=== PATIENT | male | born 1960 | race African-American/Black ===

== ENCOUNTER 2020-09-26 17:39 | Inpatient (IN) | payer MEDICAID, OTHER ==
[~2020-09-26] VITALS: Ht 172.7 cm; Wt 68.9 kg
[2020-09-26] MEDS ORDERED: SODIUM CHLORIDE 0.9% 1,000 ML IV ONE (18:15)
[2020-09-26 18:21] LABS: BASOPHILS % 1.5 % (0.0-2.0); EOSINOPHILS % 1.7 % (0.0-5.0); HEMATOCRIT. 38.1 % (42.0-52.0); LYMPHOCYTES % 25.8 % (20.0-50.0); MEAN CORPUSCULAR HEMOGLOBIN 25.5 pg (28.0-32.0); MEAN CORPUSCULAR VOLUME 75.1 fL (80.0-94.0); MEAN PLATELET VOLUME 7.6 fl (7.4-10.4); MONOCYTES % 7.5 % (2.0-8.0); NEUTROPHILS % 63.5 % (40.0-76.0); PLATELET 325 x1000/uL (130-400); RED BLOOD CELL COUNT 5.08 mill/uL (4.7-6.1); RED CELL DISTRIBUTION WIDTH 14.6 % (11.6-14.6)
[2020-09-26 18:24] LABS: CHLORIDE 108 mEq/L (98-107)
[2020-09-26 18:27] LABS: PROTHROMBIN TIME 10.9 sec (9.6-11.0)
[2020-09-26 18:29] LABS: ETHANOL BLOOD < 10 mg/dL
[2020-09-26 18:55] LABS: CLARITY URINE CLEAR (CLEAR); COLOR URINE YELLOW (YELLOW); KETONES URINE NEGATIVE (NEGATIVE); LEUKOCYTE ESTERASE URINE NEGATIVE (NEGATIVE); NITRITE URINE NEGATIVE (NEGATIVE); OCCULT BLOOD URINE 1+ (NEGATIVE); PROTEIN URINE 2+ (NEGATIVE); SPECIFIC GRAVITY URINE 1.015 (1.005-1.030); UROBILINOGEN URINE 0.2 E.U./dL (0.2-1.0)
[2020-09-26 19:07] LABS: *BARBITURATES SCREEN URINE NEGATIVE (NEGATIVE); *BENZODIAZEPINES SCREEN URINE NEGATIVE (NEGATIVE); *COCAINE SCREEN URINE NEGATIVE (NEGATIVE); METHADONE URINE SCREEN NEGATIVE (NEGATIVE); OPIATES URINE SCREEN NEGATIVE (NEGATIVE)
[2020-09-26 19:09] LABS: *AMPHETAMINES SCREEN URINE NEGATIVE (NEGATIVE); CANNABINOID URINE SCREEN PRESUMTIVE POSITIVE (NEGATIVE); PHENCYCLIDINE URINE SCREEN NEGATIVE (NEGATIVE)
[2020-09-26] MEDS ORDERED: LEVETIRACETAM 500MG PREMIX 100 ML IV ONE (21:00)
[2020-09-26] MEDS ORDERED: DEXAMETHASONE 10 MG/ML VIAL IV ONE (21:00)
[2020-09-26 21:37] LABS: PROTHROMBIN TIME 10.8 sec (9.6-11.0)
[2020-09-26] MEDS ORDERED: MORPHINE SULFATE 4 MG/ML CPJ (NOT FOR IM USE) IV PRN (22:45)
[2020-09-26] MEDS ORDERED: NICARDIPINE 100 MG in SODIUM CHLORIDE 0.9% 60 ML IV PRN (22:45)
[2020-09-26] MEDS: DEXT 5%/LACTATED RINGERS 1,000 ML IV SCH (23:20)
[2020-09-26 23:30] VITALS: BP 132/78
[2020-09-26 23:42] VITALS: BP 132/78
[2020-09-26 23:45] VITALS: BP 131/93
[2020-09-27] VITALS (80 sets, daily range): BP systolic 70–188; BP diastolic 27–147
[2020-09-27] MEDS ORDERED: LEVETIRACETAM 500MG PREMIX 100 ML IV SCH
[2020-09-27] MEDS ORDERED: ASPI-964 PO (00:11)
[2020-09-27] MEDS ORDERED: ONDANSETRON HCL 4MG/2ML INJ IV PRN (00:15)
[2020-09-27] MEDS: DEXAMETHASONE 4MG/ML 1ML VIAL IV SCH ×5 (00:37→23:22)
[2020-09-27] MEDS: LEVETIRACETAM 500MG PREMIX 100 ML IV SCH ×2 (08:50→20:46)
[2020-09-27] MEDS: PANTOPRAZOLE SODIUM 40 MG/VIAL IV SCH (08:50)
[2020-09-27] MEDS ORDERED: IPRATROPIUM/ALBUTEROL 0.5-3(2.5)MG/3ML NEB HHN PRN (09:45)
[2020-09-27] MEDS ORDERED: GADOTERATE MEGLUMINE 5 MMOL/10 ML VIAL IV ONE (11:45)
[2020-09-27] MEDS ORDERED: IOHEXOL-300 100 ML BOTTLE ONE (12:09)
[2020-09-27] MEDS: DEXT 5%/LACTATED RINGERS 1,000 ML IV SCH (15:39)
[2020-09-28] VITALS (44 sets, daily range): BP systolic 104–152; BP diastolic 52–95
[2020-09-28] MEDS: DEXAMETHASONE 4MG/ML 1ML VIAL IV SCH ×3 (05:03→17:38)
[2020-09-28] MEDS: DEXT 5%/LACTATED RINGERS 1,000 ML IV SCH (08:23)
[2020-09-28] MEDS: LEVETIRACETAM 500MG PREMIX 100 ML IV SCH ×2 (08:23→21:00)
[2020-09-28] MEDS: PANTOPRAZOLE SODIUM 40 MG/VIAL IV SCH (08:23)
[2020-09-28] MEDS ORDERED: KEPP500 MT (08:59)
[2020-09-28] MEDS ORDERED: HYDROCODONE/ACETAMINOPHEN 5/325MG TABLET PO PRN (09:00)
[2020-09-29] MEDS ORDERED: FAMOTIDINE 20MG/2ML VIAL IV SCH (09:00)
== END 2020-09-28 23:46 | disposition left against medical advice (07) | DRG 180 ==
LOC: ER 17:39 → MICUSO 21:40 → EDBEDREQ 21:43 → EDBEDREQTM 21:43 → ENRESERV 22:40 → 5WST 09-28 14:07
PROVIDERS: ADMIT Internal Medicine; ATTEND Internal Medicine
DX: C34.11 Malignant neoplasm of upper lobe, right bronchus or lung (principal); G93.6 Cerebral edema; E44.1 Mild protein-calorie malnutrition; C79.31 Secondary malignant neoplasm of brain; Z20.822 Contact with and (suspected) exposure to COVID-19; E87.8 Other disorders of electrolyte and fluid balance, not elsewhere classified; F17.210 Nicotine dependence, cigarettes, uncomplicated; Z53.29 Procedure and treatment not carried out because of patient's decision for other reasons; Z80.0 Family history of malignant neoplasm of digestive organs; Z80.1 Family history of malignant neoplasm of trachea, bronchus and lung; Z79.899 Other long term (current) drug therapy; Z79.82 Long term (current) use of aspirin; Z71.6 Tobacco abuse counseling; Z68.23 Body mass index [BMI] 23.0-23.9, adult
CPT/HCPCS: 36415; 70553; 71045; 71260; 74177; 80053; 80305; 80320; 81003; 82378; 84484; 85025; 87426; 93005; 97162; 99291; A9577; C9113; J1100; J1953; J2270; J7030; Q9967; G0480